=== PATIENT | female | born 1945 | race Caucasian/White ===

== ENCOUNTER → 2019-05-14 | Outpatient (CLI) | payer OTHER ==
[~2019-05-14] MED LIST: ATOR40TA PO; B-100 COMPLEX100 MG PO; Balsalazide Di750 MG PO; CALCIUM + D3 E1 EACH PO; FERSU300 PO; Flunisolide25 ML; GABA600 PO; HYDHCL25; IBUP800 PO; LISI20 PO; METO50ER PO; Nitrostat0.4 MG SL; OSTEO BI-FLEX1 EACH PO; OXYB5 PO; Vitamin D400 UNI1 PO
== END | disposition home or self-care (01) ==
LOC: LAB SHORT 13:36 → LAB EV 13:36
DX: N39.0 Urinary tract infection, site not specified (principal)
CPT/HCPCS: 87086

== ENCOUNTER 2019-05-27 08:17 | Day surgery (SDC) | payer OTHER ==
[~2019-05-27] VITALS: Ht 175.3 cm; Wt 116.5 kg
== END 2019-05-30 23:45 | disposition home or self-care (01) ==
LOC: MHTC 08:17
PROC: 0JH632Z Insertion of Monitoring Device into Chest Subcutaneous Tissue and Fascia, Percutaneous Approach (ICD-10-PCS; principal; 2019-05-27)
DX: I48.0 Paroxysmal atrial fibrillation (principal); I25.10 Atherosclerotic heart disease of native coronary artery without angina pectoris; I10 Essential (primary) hypertension; E66.9 Obesity, unspecified; E56.1 Deficiency of vitamin K; E78.5 Hyperlipidemia, unspecified; Z98.84 Bariatric surgery status; Z98.0 Intestinal bypass and anastomosis status; Z87.891 Personal history of nicotine dependence; Z79.899 Other long term (current) drug therapy; Z68.37 Body mass index [BMI] 37.0-37.9, adult
CPT/HCPCS: 33285; C1764

== ENCOUNTER → 2019-06-11 | Outpatient (CLI) | payer OTHER | END | disposition home or self-care (01) | LOC: LAB 12:00 → LAB SHORT 12:00 | DX: K51.20 Ulcerative (chronic) proctitis without complications (principal) | CPT/HCPCS: 83631; 87015; 87045; 87046; 87205; 87493; 87899 ==

== ENCOUNTER → 2019-06-12 | Outpatient (CLI) | payer OTHER | END | disposition home or self-care (01) | LOC: LAB 08:00 → LAB SHORT 08:00 | DX: K51.20 Ulcerative (chronic) proctitis without complications (principal) | CPT/HCPCS: 87177; 87209 ==

== ENCOUNTER → 2019-09-07 | Outpatient (CLI) | payer OTHER | END | disposition home or self-care (01) | LOC: LAB SHORT 14:00 → LAB EV 14:00 | DX: R30.9 Painful micturition, unspecified (principal) | CPT/HCPCS: 87086 ==

== ENCOUNTER → 2020-11-06 | Outpatient (CLI) | payer OTHER ==
[~2020-11-06] MED LIST changes: +FAMO20 PO; +HYDROCODONE-AC1 EAC7 PO; +NITR100CA PO; +PRED20 PO; +TRAZ50 PO
== END ==
LOC: LAB SHORT 18:08 → LAB 18:08
DX: N39.0 Urinary tract infection, site not specified (principal)
CPT/HCPCS: 87086

== ENCOUNTER 2020-11-30 05:16 | Emergency (ER) | payer OTHER ==
[~2020-11-30] VITALS: Ht 167.6 cm; Wt 107.5 kg
[~2020-11-30 05:16] MED LIST changes: -FAMO20 PO; -HYDROCODONE-AC1 EAC7 PO; -NITR100CA PO; -PRED20 PO; -TRAZ50 PO
[2020-11-30 05:52] LABS: BASOPHILS ABSOLUTE AUTO 0.02 K/mm3 (0.00-0.23); BASOPHILS PERCENT AUTO 1 % (0-2); EOSINOPHILS ABSOLUTE AUTO 0.04 K/mm3 (0.00-0.68); EOSINOPHILS PERCENT AUTO 1 % (0-6); Hematocrit 39.7 % (33.0-51.0); IMMATURE GRAN ABSOLUTE AUTO 0.07 K/mm3 (0.00-0.10); IMMATURE GRAN PERCENT AUTO 2 % (0-1); LYMPHOCYTES ABSOLUTE AUTO 1.26 K/mm3 (0.84-5.20); LYMPHOCYTES PERCENT AUTO 29 % (21-46); MONOCYTES ABSOLUTE AUTO 0.41 K/mm3 (0.16-1.47); MONOCYTES PERCENT AUTO 10 % (4-13); Mean Corpuscular HGB 29.9 pg (26.0-34.0); Mean Corpuscular HGB Conc 30.2 g/dL (31.5-36.5); Mean Corpuscular Volume 99 fL (80-100); Mean Platelet Volume 10.7 fL (9.1-12.4); NEUTROPHILS ABSOLUTE AUTO 2.52 K/mm3 (1.96-9.15); NEUTROPHILS PERCENT AUTO 58 % (41-73); Platelet Count 167 K/mm3 (150-400); RDW Coefficient Variation 13.2 % (11.7-14.2); RDW Standard Deviation 47.8 fL (35.1-46.3); Red Blood Cell Count 4.02 M/mm3 (3.80-5.20); White Blood Cell Count 4.32 K/mm3 (4.00-11.30)
[2020-11-30] MEDS ORDERED: TRAZ50 PO (05:53)
[2020-11-30] MEDS ORDERED: HYDROCODONE-AC1 EAC7 PO (05:53)
[2020-11-30 06:12] LABS: Alanine Aminotransfer (ALT/SGP 16 U/L (12-78); Albumin, Blood 2.8 g/dL (3.4-5.0); Albumin/Globulin Ratio 0.8 (0.8-1.8); Alk Phos 133 U/L (50-136); Anion Gap 5 mmol/L (6-16); Aspartate Aminotrans (AST/SGOT 20 U/L (12-37); Bilirubin, Total 0.3 mg/dL (0.1-1.0); Blood Urea Nitrogen 14 mg/dL (8-24); Bun/Creatinine Ratio 21.2 (12.0-20.0); CO2, Blood 29 mmol/L (21-32); Calcium, Blood 8.1 mg/dL (8.5-10.1); Chloride, Blood 110 mmol/L (98-108); Creatinine, Blood 0.66 mg/dL (0.40-1.00); Globulin, Blood 3.7 g/dL (2.2-4.0); Glomerular Filtration Rate >60 (60-); Glucose, Blood 113 mg/dL (70-99); Potassium, Blood 3.6 mmol/L (3.5-5.5); Sodium, Blood 144 mmol/L (136-145); Total Protein, Blood 6.5 g/dL (6.4-8.2); Troponin I <0.015 ng/mL (0.000-0.040)
== END 2020-11-30 09:16 | disposition home or self-care (01) ==
LOC: ER 05:16
PROVIDERS: Emergency Medicine
DX: I20.0 Unstable angina (principal); I25.10 Atherosclerotic heart disease of native coronary artery without angina pectoris; I25.2 Old myocardial infarction; I10 Essential (primary) hypertension; E78.5 Hyperlipidemia, unspecified; E11.9 Type 2 diabetes mellitus without complications; Z79.899 Other long term (current) drug therapy; Z91.09 Other allergy status, other than to drugs and biological substances; Z88.1 Allergy status to other antibiotic agents; Z95.5 Presence of coronary angioplasty implant and graft; Z95.0 Presence of cardiac pacemaker
CPT/HCPCS: 36415; 71045; 80053; 84484; 85025; 93005; 93010; 99285-25; G2066

== ENCOUNTER 2021-01-12 17:00 | Emergency (ER) | payer OTHER ==
[~2021-01-12] VITALS: Ht 167.6 cm; Wt 109.8 kg
[~2021-01-12 17:00] MED LIST changes: -FAMO20 PO; -NITR100CA PO; -PRED20 PO
[2021-01-12 17:37] LABS: BASOPHILS ABSOLUTE AUTO 0.02 K/mm3 (0.00-0.23); BASOPHILS PERCENT AUTO 0 % (0-2); EOSINOPHILS ABSOLUTE AUTO 0.02 K/mm3 (0.00-0.68); EOSINOPHILS PERCENT AUTO 0 % (0-6); Hematocrit 46.7 % (33.0-51.0); Hemoglobin 14.3 g/dL (11.5-16.0); IMMATURE GRAN PERCENT AUTO 5 % (0-1); LYMPHOCYTES ABSOLUTE AUTO 1.65 K/mm3 (0.84-5.20); LYMPHOCYTES PERCENT AUTO 29 % (21-46); MONOCYTES PERCENT AUTO 5 % (4-13); Mean Corpuscular HGB 29.5 pg (26.0-34.0); Mean Corpuscular HGB Conc 30.6 g/dL (31.5-36.5); Mean Corpuscular Volume 97 fL (80-100); Mean Platelet Volume 11.3 fL (9.1-12.4); NEUTROPHILS ABSOLUTE AUTO 3.47 K/mm3 (1.96-9.15); NEUTROPHILS PERCENT AUTO 60 % (41-73); Platelet Count 211 K/mm3 (150-400); RDW Coefficient Variation 13.3 % (11.7-14.2); RDW Standard Deviation 48.1 fL (35.1-46.3); Red Blood Cell Count 4.84 M/mm3 (3.80-5.20); White Blood Cell Count 5.76 K/mm3 (4.00-11.30)
[2021-01-12 18:07] LABS: BASOPHILS PERCENT MAN 0 % (0-2); EOSINOPHILS PERCENT MAN 0 % (0-6); LYMPHOCYTES ABSOLUTE MAN 1.49 K/mm3 (0.84-5.20); LYMPHOCYTES PERCENT MAN 26 % (21-46); MONOCYTES ABSOLUTE MAN 0.23 K/mm3 (0.16-1.47); MONOCYTES PERCENT MAN 4 % (4-13); NEUTROPHILS ABSOLUTE MAN 4.03 K/mm3 (1.96-9.15); SEG NEUTROPHILS PERCENT MAN 70 % (41-73); TOTAL CELLS COUNTED 100
[2021-01-12 18:09] LABS: Anion Gap 8 mmol/L (6-16); Blood Urea Nitrogen 17 mg/dL (8-24); Bun/Creatinine Ratio 23.2 (12.0-20.0); CO2, Blood 23 mmol/L (21-32); Calcium, Blood 8.5 mg/dL (8.5-10.1); Chloride, Blood 110 mmol/L (98-108); Creatinine, Blood 0.73 mg/dL (0.40-1.00); Glomerular Filtration Rate >60 (60-); Glucose, Blood 129 mg/dL (70-99); Potassium, Blood 3.7 mmol/L (3.5-5.5); Sodium, Blood 141 mmol/L (136-145); Troponin I <0.015 ng/mL (0.000-0.040)
[2021-01-12 18:41] LABS: Source, Urine Clean Catch
[2021-01-12 18:46] LABS: Appearance, Urine Cloudy (Clear); Blood, Urine 2+ (Neg); Color, Urine Yellow (P-Yellow); Glucose Qualitative, Urine Neg (Neg); Ketones, Urine Neg (Neg); Leukocyte Esterase, Urine 3+ (Neg); Nitrite, Urine Pos (Neg); Protein, Urine 2+ (Neg); Specific Gravity, Urine 1.025 (1.003-1.022); Urobilinogen, Urine 1+ (Normal)
[2021-01-12 18:57] LABS: Bilirubin, Urine 2+ (Neg)
[2021-01-12 18:59] LABS: Bacteria Mod /hpf; Red Blood Cells, Urine 0-2 /hpf (0-2); Squamous Epithelial Cells Few /hpf (Few); White Blood Cells, Urine TNTC /hpf (0-5)
[2021-01-12] MEDS ORDERED: PRED20 PO (18:59)
[2021-01-12] MEDS ORDERED: FAMO20 PO (18:59)
[2021-01-12] MEDS ORDERED: NITR100CA PO (19:12)
== END 2021-01-12 19:54 | disposition home or self-care (01) ==
LOC: ER 17:00
PROVIDERS: Emergency Medicine
DX: L29.9 Pruritus, unspecified (principal); T36.0X5A Adverse effect of penicillins, initial encounter; R22.0 Localized swelling, mass and lump, head; I10 Essential (primary) hypertension; E78.5 Hyperlipidemia, unspecified; E11.9 Type 2 diabetes mellitus without complications; I25.10 Atherosclerotic heart disease of native coronary artery without angina pectoris; I25.2 Old myocardial infarction; Z95.1 Presence of aortocoronary bypass graft; Z79.899 Other long term (current) drug therapy; Z91.09 Other allergy status, other than to drugs and biological substances
CPT/HCPCS: 80048; 81001; 84484; 85025; 87077; 87086; 87186; 93005; 93010; 96365; 96374; 99285-25; J0696

== ENCOUNTER → 2021-01-12 | Outpatient (CLI) | payer OTHER ==
[~2021-01-12] MED LIST changes: +FAMO20 PO; +HYDROCODONE-AC1 EAC7 PO; +NITR100CA PO; +PRED20 PO; +TRAZ50 PO
[2021-01-12 16:49] LABS: BASOPHILS ABSOLUTE AUTO 0.01 K/mm3 (0.00-0.23); BASOPHILS PERCENT AUTO 0 % (0-2); EOSINOPHILS ABSOLUTE AUTO 0.05 K/mm3 (0.00-0.68); EOSINOPHILS PERCENT AUTO 1 % (0-6); Hematocrit 46.4 % (33.0-51.0); Hemoglobin 14.5 g/dL (11.5-16.0); IMMATURE GRAN PERCENT AUTO 2 % (0-1); LYMPHOCYTES ABSOLUTE AUTO 2.92 K/mm3 (0.84-5.20); LYMPHOCYTES PERCENT AUTO 51 % (21-46); MONOCYTES PERCENT AUTO 9 % (4-13); Mean Corpuscular HGB Conc 31.3 g/dL (31.5-36.5); Mean Corpuscular Volume 96 fL (80-100); Mean Platelet Volume 11.4 fL (9.1-12.4); NEUTROPHILS PERCENT AUTO 38 % (41-73); Platelet Count 229 K/mm3 (150-400); RDW Coefficient Variation 13.6 % (11.7-14.2); RDW Standard Deviation 48.1 fL (35.1-46.3); Red Blood Cell Count 4.83 M/mm3 (3.80-5.20); White Blood Cell Count 5.78 K/mm3 (4.00-11.30)
[2021-01-12 17:01] LABS: Anion Gap 11 mmol/L (6-16); Blood Urea Nitrogen 17 mg/dL (8-24); Bun/Creatinine Ratio 17.9 (12.0-20.0); CO2, Blood 25 mmol/L (21-32); Calcium, Blood 8.9 mg/dL (8.5-10.1); Chloride, Blood 104 mmol/L (98-108); Creatinine, Blood 0.95 mg/dL (0.40-1.00); Glomerular Filtration Rate 58 (60-); Glucose, Blood 114 mg/dL (70-99); Potassium, Blood 3.7 mmol/L (3.5-5.5); Sodium, Blood 140 mmol/L (136-145)
[2021-01-12 17:02] LABS: Troponin I <0.017 ng/mL (0.000-0.040)
== END | disposition home or self-care (01) ==
LOC: LAB SHORT 16:45 → PLD 16:45
PROVIDERS: Physician Assistant Surgical
DX: R07.9 Chest pain, unspecified (principal)
CPT/HCPCS: 80048; 84484; 85025

== ENCOUNTER 2021-03-23 06:11 | Day surgery (SDC) | payer OTHER ==
[~2021-03-23] VITALS: Ht 177.8 cm; Wt 98.5 kg
[~2021-03-23 06:11] MED LIST changes: +FAMO20 PO; +NITR100CA PO; +PRED20 PO
--- NOTE | 2021-03-23 06:59 | NUR ---
03/23/21 0659 Ambika Benson CHARTED BY [email or web address]
--- NOTE | 2021-03-23 07:57 | NUR ---
03/23/21 0757 Chaya Noriega BUPIVACAINE 0.5% 30 MLS MIXED W/ EPI 0.15 ML PER ORDER TO CONSTITUTE BUPIVACAINE 0.5% 1:200,000 FOR INJECTION AT OPSITE BY DR ARIZMENDI.
--- NOTE | 2021-03-23 09:12 | NUR ---
03/23/21 0912 Nisha Camarena V PT REPORTS PAIN 5/10 IN OPERATIVE SITE FOR WHICH SHE HAS BEEN MEDICATED FOR PER ORDERS. PT RESTING IN RECLINER WITH OPERATIVE LIMB ELEVATED AND ICE APPLIED. PT TOLERATING PO NURISHMENTS. CALL LIGHT WITHIN REACH. VSS.
== END 2021-03-23 09:53 | disposition home or self-care (01) ==
LOC: ORSCSDS 06:11
PROVIDERS: Podiatrist Foot & Ankle Surgery
PROC: 0QBL0ZZ Excision of Right Tarsal, Open Approach (ICD-10-PCS; principal; 2021-03-23 07:30)
PROC: 0L8N0ZZ Division of Right Lower Leg Tendon, Open Approach (ICD-10-PCS; principal; 2021-03-23 07:30)
DX: M65.28 Calcific tendinitis, other site (principal); M24.573 Contracture, unspecified ankle; I48.91 Unspecified atrial fibrillation; E78.5 Hyperlipidemia, unspecified; I10 Essential (primary) hypertension; Z79.899 Other long term (current) drug therapy; Z87.891 Personal history of nicotine dependence; E66.01 Morbid (severe) obesity due to excess calories; Z68.36 Body mass index [BMI] 36.0-36.9, adult
CPT/HCPCS: A9270; C1713; J0171; J0690; J1100; J2001; J2250; J2405; J2704; J3010; J7120

== ENCOUNTER → 2021-04-12 | Outpatient (CLI) | payer OTHER ==
[2021-04-12 10:43] LABS: Source, Urine Clean Catch
[2021-04-12 12:39] LABS: Bacteria Rare /hpf; Red Blood Cells, Urine 0-2 /hpf (0-2); Squamous Epithelial Cells Rare /hpf (Few)
== END | disposition home or self-care (01) ==
LOC: LAB 10:38 → LAB SHORT 10:38
PROVIDERS: Physician Assistant Medical
DX: N39.0 Urinary tract infection, site not specified (principal)
CPT/HCPCS: 81015; 87086

== ENCOUNTER 2021-09-11 08:34 | Day surgery (SDC) | payer OTHER ==
[~2021-09-11] VITALS: Ht 170.2 cm; Wt 99.8 kg
[~2021-09-11 08:34] MED LIST changes: +Estrace Vagin42.5 GM VAG; +PROLIA60 MG/1 ML SC; +SOLI5 PO
[2021-09-11] MEDS ORDERED: MACRODANTIN50 M1 PO (10:18)
[2021-09-11] MEDS ORDERED: TRAZ50 PO (10:18)
[2021-09-11] MEDS ORDERED: MESA250ER PO (10:19)
--- NOTE | 2021-09-11 12:53 | NUR ---
PT ARRIVED TO UNIT FROM PACU ABLE TO WIGGLE TOES SLIGHTLY. SENSATION MID THIGH. DENIES PAIN, N/V OR SOB. LCA. RESPIRATIONS EASY ON RA. HX AFIB. BTX4. MAR WRAP TO RLE CDI. POLAR PACK IN PLACE.
--- NOTE | 2021-09-11 16:52 | NUR ---
THERAPY IN TO WORK W/PT.
--- NOTE | 2021-09-11 17:09 | NUR ---
SUMMARY PT ARRIVED TO UNIT FROM PACU THIS AFTERNOON. BECAME VERY PAINFUL AFTER SPINAL BEGAN TO WEAR OFF. ADMINISTERED MEDS PER ORDERS FOR PAIN. PT NOW REPORTS PAIN SLIGHTLY IMPROVED, RATING 4/10. DENIES N/V OR SOB. AMBULATED TO RESTROOM AND IS NOW WORKING W/SERGIO FROM THERAPY. MAR WRAP TO RLE CDI. REC'D TXA PER ORDERS. TOLERATING PO. USES CALL LIGHT APPROPRIATELY.
--- NOTE | 2021-09-12 04:04 | NUR ---
SHIFT SUMMARY PT A&O X4 AND IN PLEASENT MOOD T/O SHIFT. POD1 L TKA, MAR DRESSING IN PLACE- CDI. SCDS IN PLACE. PPP. VSS. TOLERATING PO INTAKE, VOIDING WELL, AND DENIES N/V. MEDICATING PAIN PER EMAR AND POLAR PACK IN PLACE. PT WAS UP TO CHAIR FOR PART OF NIGHTS. CALL LIGHT W/IN REACH.
[2021-09-12 05:00] LABS: BASOPHILS ABSOLUTE AUTO 0.01 K/mm3 (0.00-0.23); BASOPHILS PERCENT AUTO 0 % (0-2); EOSINOPHILS ABSOLUTE AUTO 0.02 K/mm3 (0.00-0.68); EOSINOPHILS PERCENT AUTO 0 % (0-6); Hematocrit 32.9 % (33.0-51.0); Hemoglobin 9.8 g/dL (11.5-16.0); IMMATURE GRAN ABSOLUTE AUTO 0.09 K/mm3 (0.00-0.10); IMMATURE GRAN PERCENT AUTO 2 % (0-1); LYMPHOCYTES ABSOLUTE AUTO 0.94 K/mm3 (0.84-5.20); LYMPHOCYTES PERCENT AUTO 15 % (21-46); MONOCYTES ABSOLUTE AUTO 0.38 K/mm3 (0.16-1.47); MONOCYTES PERCENT AUTO 6 % (4-13); Mean Corpuscular HGB Conc 29.8 g/dL (31.5-36.5); Mean Corpuscular Volume 97 fL (80-100); Mean Platelet Volume 11.6 fL (9.1-12.4); NEUTROPHILS ABSOLUTE AUTO 4.75 K/mm3 (1.96-9.15); NEUTROPHILS PERCENT AUTO 77 % (41-73); Platelet Count 177 K/mm3 (150-400); RDW Coefficient Variation 15.1 % (11.7-14.2); RDW Standard Deviation 53.3 fL (35.1-46.3); Red Blood Cell Count 3.38 M/mm3 (3.80-5.20); White Blood Cell Count 6.19 K/mm3 (4.00-11.30)
[2021-09-12 05:20] LABS: Anion Gap 2 mmol/L (6-16); Blood Urea Nitrogen 17 mg/dL (8-24); Bun/Creatinine Ratio 21.7 (12.0-20.0); CO2, Blood 30 mmol/L (21-32); Chloride, Blood 106 mmol/L (98-108); Creatinine, Blood 0.79 mg/dL (0.40-1.00); Glomerular Filtration Rate >60 (60-); Glucose, Blood 120 mg/dL (70-99); Potassium, Blood 3.8 mmol/L (3.5-5.5); Sodium, Blood 138 mmol/L (136-145)
[2021-09-12] MEDS ORDERED: XARELTO10 M1 PO (09:18)
--- NOTE | 2021-09-12 12:16 | NUR ---
DISCHARGE SUMMARY PT A/O X4; PLEASANT AND COOPERATIVE WITH CARE. POD #1 FOR R TOTAL KNEE REPLACEMENT. PT WORKED WITH PHYSICAL THERAPY AND WAS CLEARED TO LEAVE. PT HAD CONCERNS REGARDING PAIN CONTROL PRIOR TO DC. PT IS IN PAIN CONTRACT WITH PRIMARY CARE DOCTOR AND PCP IS FILLING THE SCRIPT FOR HER PAIN MEDICATION. PT CONCERNED THAT SHE DOES NOT HAVE ENOUGH PAIN MEDICATION TO MANAGE PAIN. CONSULTED WITH DRILLING SUPERINTENDENT AND WAS NOTIFIED THAT THIS WAS DISCUSSED WITH THE PATIENT PRIOR TO HAVING SURGERY AND PT NEEDS TO CALL PCP FOR CONCERNS REGARDING PAIN MEDICATION. PT VERBALIZED UNDERSTANDING WHEN I SPOKE WITH HER ABOUT THIS. DC'D HOME WITH .
== END 2021-09-12 12:10 | disposition home or self-care (01) ==
LOC: ORSCMMR 08:34 → ORD 10:00 → ORSCMMR 10:30 → SURS 12:46 → ORSCMMR 09-12 12:10
PROVIDERS: Orthopaedic Surgery
PROC: 8E0YXBZ Computer Assisted Procedure of Lower Extremity (ICD-10-PCS; principal; 2021-09-11 10:30)
PROC: 0SRC0JA Replacement of Right Knee Joint with Synthetic Substitute, Uncemented, Open Approach (ICD-10-PCS; principal; 2021-09-11 10:30)
DX: M17.11 Unilateral primary osteoarthritis, right knee (principal); Z87.891 Personal history of nicotine dependence; I48.91 Unspecified atrial fibrillation; E78.5 Hyperlipidemia, unspecified; I10 Essential (primary) hypertension; Z79.899 Other long term (current) drug therapy
CPT/HCPCS: 36415; 73560-RT; 80048; 85025; 94760; 97110; 97110-CQ; 97116; 97116-CQ; 97162; 97530-CQ; A9270; C1776; J0171; J0735; J1170; J1885; J2370; J2405; J2704; J2795; J3010; J7120

== ENCOUNTER → 2021-11-13 | Outpatient (CLI) | payer OTHER ==
[~2021-11-13] MED LIST changes: +MACRODANTIN50 M1 PO; +MESA250ER PO; +XARELTO10 M1 PO
== END | disposition home or self-care (01) ==
LOC: LAB SHORT 17:19
DX: G89.4 Chronic pain syndrome (principal)
CPT/HCPCS: G0480

== ENCOUNTER 2022-09-20 09:18 | Day surgery (SDC) | payer OTHER ==
[~2022-09-20] VITALS: Ht 172.7 cm; Wt 98.1 kg
[2022-09-20] MEDS ORDERED: METO25ER PO (10:13)
--- NOTE | 2022-09-20 11:11 | NUR ---
09/20/22 1111 Chaya Noriega 20 MLS OF ROPIVACAINE 0.5% 1:200,000 INJECTED AT OPSITE BY DR ARIZMENDI.
== END 2022-09-20 12:30 | disposition home or self-care (01) ==
LOC: ORSCSDS 09:18
PROVIDERS: Podiatrist Foot & Ankle Surgery
PROC: 0LBV0ZX Excision of Right Foot Tendon, Open Approach, Diagnostic (ICD-10-PCS; principal; 2022-09-20 10:45)
DX: M67.471 Ganglion, right ankle and foot (principal); I10 Essential (primary) hypertension; I25.2 Old myocardial infarction; K21.9 Gastro-esophageal reflux disease without esophagitis; I48.91 Unspecified atrial fibrillation; Z79.899 Other long term (current) drug therapy
CPT/HCPCS: 88304; A9270; J0171; J0690; J1100; J2250; J2370; J2405; J2704; J2795; J3010; J7120

== ENCOUNTER 2024-05-12 09:10 | Day surgery (SDC) | payer OTHER ==
[~2024-05-12 09:10] MED LIST changes: +METO25ER PO
== END 2024-05-12 22:39 | disposition home or self-care (01) ==
LOC: WOUND 09:10
DX: L02.415 Cutaneous abscess of right lower limb (principal); D17.23 Benign lipomatous neoplasm of skin and subcutaneous tissue of right leg; I25.10 Atherosclerotic heart disease of native coronary artery without angina pectoris; I10 Essential (primary) hypertension; Z88.0 Allergy status to penicillin

== ENCOUNTER 2024-05-21 02:35 | Day surgery (SDC) | payer OTHER | END 2024-05-21 23:12 | disposition home or self-care (01) | LOC: WOUND 02:35 | DX: L02.415 Cutaneous abscess of right lower limb (principal); D17.23 Benign lipomatous neoplasm of skin and subcutaneous tissue of right leg; I25.10 Atherosclerotic heart disease of native coronary artery without angina pectoris; I10 Essential (primary) hypertension | CPT/HCPCS: A6213; G0463 ==

== ENCOUNTER 2024-05-28 02:51 | Day surgery (SDC) | payer OTHER ==
[2024-05-28] MEDS ORDERED: Lidocaine HCl 4% Cream 5 GM ONE (08:49)
[2024-05-28] MEDS ORDERED: Silver Nitr/Potassium Nitrate 1 EA APPL ONE (08:58)
[2024-05-28] MEDS ORDERED: Triamcinolone Acet 0.1% Cream 15 gm ONE (08:58)
== END 2024-05-28 22:37 | disposition home or self-care (01) ==
LOC: WOUND 02:51
DX: L02.415 Cutaneous abscess of right lower limb (principal); I10 Essential (primary) hypertension
CPT/HCPCS: A6213; A9270; G0463

== ENCOUNTER 2024-06-04 05:38 | Day surgery (SDC) | payer OTHER | END 2024-06-04 22:43 | disposition home or self-care (01) | LOC: WOUND 05:38 | DX: L97.112 Non-pressure chronic ulcer of right thigh with fat layer exposed (principal); D17.23 Benign lipomatous neoplasm of skin and subcutaneous tissue of right leg; I10 Essential (primary) hypertension | CPT/HCPCS: A6213; G0463 ==

== ENCOUNTER 2024-06-11 01:57 | Day surgery (SDC) | payer OTHER | END 2024-06-11 22:56 | disposition home or self-care (01) | LOC: WOUND 01:57 | DX: D17.23 Benign lipomatous neoplasm of skin and subcutaneous tissue of right leg (principal); I10 Essential (primary) hypertension | CPT/HCPCS: G0463 ==